=== PATIENT | female | born 1970 | race Caucasian/White ===

== ENCOUNTER 2019-05-28 21:47 | Emergency (ER) | payer MEDICAID ==
[~2019-05-28] VITALS: Ht 162.6 cm; Wt 47.6 kg
--- NOTE | 2019-05-28 22:27 | NUR ---
at bedside for MSE
[2019-05-28] MEDS ORDERED: IV NORMAL SALINE 1000 ML BAG IV ONE (22:30)
[2019-05-28 23:06] LABS: BASOPHILS % (AUTO) 0.2 % (0.0-2.0); EOSINOPHILS # (AUTO) 0.1 K/uL (0.0-0.7); EOSINOPHILS % (AUTO) 1.1 % (0.0-7.0); HEMATOCRIT 44.9 % (31.2-41.9); HEMOGLOBIN 15.3 g/dL (10.9-14.3); LYMPHOCYTES # (AUTO) 3.8 K/uL (20.0-40.0); MEAN CORPUSCULAR HEMOGLOBIN 32.7 uug (24.7-32.8); MEAN CORPUSCULAR HGB CONC 34 g/dL (32.3-35.6); MEAN CORPUSCULAR VOLUME 95.9 fL (75.5-95.3); MONOCYTES # (AUTO) 0.7 K/uL (2.0-10.0); MONOCYTES % (AUTO) 7.3 % (0.0-11.0); NEUTROPHILS # (AUTO) 5.5 K/uL (1.8-8.9); NEUTROPHILS % (AUTO) 54.4 % (38.5-71.5); PLATELET COUNT (AUTO) 194 K/uL (179-408); RED BLOOD CELL COUNT(AUTO) 4.69 MIL/uL (3.63-4.92); WHITE BLOOD COUNT (AUTO) 10.2 K/uL (3.8-11.8)
[2019-05-28 23:14] LABS: CREATININE 0.9 mg/dL (0.6-1.3)
--- NOTE | 2019-05-28 23:15 | NUR ---
Strep throat cultures collected and sent to lab,
[2019-05-28] MEDS ORDERED: FLUO40CA8 PO (23:25)
[2019-05-28] MEDS ORDERED: OLAN10TA23 PO (23:25)
[2019-05-28] MEDS ORDERED: HYDR50CA PO (23:25)
[2019-05-28 23:28] LABS: BILIRUBIN,DIRECT 0.2 mg/dL (0.0-0.2); BILIRUBIN,TOTAL 0.9 mg/dL (0.2-1.0); TOTAL PROTEIN, SERUM 7.8 g/dL (6.4-8.2)
[2019-05-28] MEDS ORDERED: POTASSIUM BICARBONATE/CIT AC 25 MEQ TABLET.EFF PO ONE (23:30)
[2019-05-28] MEDS ORDERED: POTASSIUM BICARBONATE/CIT AC 25 MEQ TABLET.EFF ONE (23:31)
[2019-05-28 23:33] LABS: THYROID STIMULATING HORMONE 1.61 mIU/mL (0.358-3.740)
[2019-05-28] MEDS ORDERED: SWABABLE VALVE TRANSFER SET EA MC ONE (23:52)
[2019-05-28] MEDS ORDERED: IV NORMAL SALINE 250 ML IV ONE (23:52)
[2019-05-28] MEDS ORDERED: IOHEXOL 350 100 ML INFUS..BTL ONE (23:52)
--- NOTE | 2019-05-28 23:52 | NUR ---
Pt. taken off unit via stretcher by [employer]. for CTA, IV patent - no s/s infiltration/phlebitis
[2019-05-29] MEDS ORDERED: IV NORMAL SALINE 1000 ML BAG IV ONE (00:45)
[2019-05-29] MEDS ORDERED: LORAZEPAM 2 MG/1 ML VIAL IV ONE (00:45)
--- NOTE | 2019-05-29 00:45 | NUR ---
Pt. up to use restroom, ambulates w/ steady gait, IV reconnected - fluids infusing - no s/s infiltration/phlebitis,
[2019-05-29] MEDS ORDERED: LORAZEPAM 2 MG/1 ML VIAL ONE (00:48)
--- NOTE | 2019-05-29 03:21 | NUR ---
Patient given written and verbal discharge instructions. Patient verbalizes understanding of instructions. Patient is ambulatory with steady gait. Refuses offer of custodial placement. Patient given list of available shelters in surrounding area. Pt. d/c w/ prescription per MD order, d/c papers signed, all belongings w/ pt., ID band removed, ambulated off unit w/ steady gait accompanied by male fingernail sculpturer, LOPEZ
== END 2019-05-29 03:23 | disposition home or self-care (01) ==
LOC: ER 21:47
DX: R07.81 Pleurodynia (principal); J02.9 Acute pharyngitis, unspecified; B00.89 Other herpesviral infection; K12.1 Other forms of stomatitis; F10.10 Alcohol abuse, uncomplicated; F12.10 Cannabis abuse, uncomplicated; F17.200 Nicotine dependence, unspecified, uncomplicated; Z90.710 Acquired absence of both cervix and uterus; Z88.5 Allergy status to narcotic agent; Z59.0 Homelessness; Z79.899 Other long term (current) drug therapy; Y90.9 Presence of alcohol in blood, level not specified
CPT/HCPCS: 36415 ×2; 71045; 71275; 80048; 80076; 83735; 83880; 84443; 84484 ×2; 84702; 85025; 85379; 85730; 86403; 87070; 93005 ×2; 96374; 99284; J2060; Q9967; 70030-TC; A4663; J7030; J7050